=== PATIENT | male | born 1995 | race Caucasian/White ===

== ENCOUNTER 2017-03-10 21:47 | Observation (INO) | payer BC ==
[~2017-03-10] VITALS: Ht 177.8 cm; Wt 84.3 kg
[2017-03-10] MEDS ORDERED: ALBUT/IPRATROP 3MG/0.5MG NEB 3 ML VIAL INH STA (22:03)
[2017-03-10] MEDS ORDERED: ALBUT/IPRATROP 3MG/0.5MG NEB 3 ML VIAL ONE (22:03)
[2017-03-10] MEDS ORDERED: DEXAMETHASONE SOD INJ 10 MG/ML VIAL PO ONE (22:15)
[2017-03-10] MEDS ORDERED: ALBUT/IPRATROP 3MG/0.5MG NEB 3 ML VIAL INH ONE (22:15)
[2017-03-10 22:23] VITALS: PULSE 117; O2SAT 99
[2017-03-10] MEDS ORDERED: VNTHFA/IN INH (22:51)
[2017-03-10] MEDS ORDERED: CLR10 PO (22:51)
[2017-03-10] MEDS ORDERED: GUAI1TAB55 PO (22:52)
[2017-03-10] MEDS ORDERED: SODIUM CHLORIDE 0.9% 1000ML 1,000 ML IV STA ×2 (23:32)
[2017-03-10] MEDS ORDERED: MAGNESIUM SULFATE 1GM / D5W 1 GM BAG IV STA (23:32)
[2017-03-10 23:49] LABS: BASO % 0.3 %; BASO ABS # 0.06 K/uL (0-0.2); COMPLETE YES; EOS % 0.4 %; HEMATOCRIT 46.6 % (42-52); IG% 0.3 %; LYMPH % 6.5 %; LYMPH ABS # 1.43 K/uL (1.2-3.4); MEAN CELL VOLUME 88.1 fL (80-100); MEAN CORPUSCULAR HEMOGLOBIN 31.2 pg (25-34); MEAN CORPUSCULAR HGB CONC 35.4 g/dl (32-36); MEAN PLATELET VOLUME 10.1 fL (7.4-10.4); MONO % 7.4 %; NEUT % 85.1 %; PLATELET COUNT 335 K/uL (130-400); RED BLOOD COUNT 5.29 M/uL (4.7-6.1); WHITE BLOOD COUNT 22.01 K/uL (4.8-10.8)
[2017-03-10 23:53] LABS: VEN BLOOD GAS BASE EXCESS 1.7 mEq/L; VENOUS BLOOD GAS PCO2 47 mmHg (38.0-50.0); VENOUS BLOOD GAS PO2 22 mmHg
[2017-03-10 23:55] LABS: VEN BLD GAS O2 SATURATION < 60.0 %
[2017-03-11 00:07] LABS: BUN/CREATININE RATIO 7.3 (10-20); CALCIUM 9.5 mg/dl (8.5-10.1); CREATININE 1.1 mg/dl (0.60-1.40); POTASSIUM 3.4 mmol/L (3.5-5.1)
--- NOTE | 2017-03-11 01:42 | History and Physical ---
History & Physical Date & Time of Service: Mar 11, 2017 at 01:42 Chief Complaint: Trouble Breathing, Inhaler Wont Help Primary Care Physician: No Doctor, Assigned History of Present Illness Source: patient Rayo Allen is a 21 year old male who presented to the ER with shortness of breath, chest tightness/pain, nasal congestion, cough and wheezing for 2 days. He has known asthma but not on any maintenance inhaler. He takes albuterol approximately twice/week usually for relief of his symptoms. He gets his symptoms all year round. Recently a few of his work colleagues had a URI which he thinks he may now have. He is coughing up small amounts of yellow sputum. In the ER he was given steroids and duonebs which helped with his shortness of breath however he is still having chest tightness and is wheezing. Past Medical/Surgical History Asthma Family History Father and brother have asthma Social History Smoking Status: Never Smoker Smokeless Tobacco Use: No Alcohol Use: heavy (>10 drinks twice/week) Drug Use: marijuana Marital Status: single Occupational Status: [employer] student Immunizations History of Influenza Vaccine: Unknown History of Tetanus Vaccine?: Unknown History of Pneumococcal: No History of Hepatitis B Vaccine: Unknown Multi-Drug Resistant Organisms History of MDRO: No Allergies Coded Allergies: No Known Allergies (Unverified , 03/10/17) Home Medications Scheduled Guaifenesin Ext Rel (Mucinex Ext Rel), 600 MG PO Q12 Loratadine (Claritin), 10 MG PO DAILY Scheduled PRN Albuterol Hfa (Ventolin Hfa), 2 PUFFS INH Q4 PRN for SOB/Wheezing Review of Systems Constitutional: No fever, No chills ENT: + nasal symptoms (congestion), + sore throat, No unusual epistaxis Respiratory: + cough, + sputum, + shortness of breath, + dyspnea on exertion, + dyspnea at rest, No hemoptysis Cardiovascular: + chest pain (tightness, worse on lying down) Abdomen: No pain, No nausea, No vomiting, No diarrhea, No constipation, No GI bleeding Musculoskeletal: No joint pain, No muscle pain Genitourinary - Male: No hematuria, No dysuria, No urinary frequency Neurologic: + problem reported (hoarse voice since coming to the ER) Endocrine: No fatigue, No excessive thirst, No excessive urination Hematologic / Lymphatic: No abnormal bleeding/bruising Integumentary: No rash, No itch Physical Exam Vital Signs Date Time Temp Pulse Resp B/P (MAP) Pulse Ox O2 Delivery O2 Flow Rate FiO2 03/11/17 01:09 108 28 143/93 94 Room Air 03/11/17 01:08 92 Room Air 03/11/17 00:19 109 24 141/84 95 Room Air 03/10/17 23:25 132 24 110/77 92 Room Air 03/10/17 22:29 120 03/10/17 22:23 117 18 99 Room Air 03/10/17 22:15 100 03/10/17 21:55 37.0 126 18 153/88 90 Room Air 03/10/17 21:55 93 Room Air General Appearance: WD/WN, + mild distress (short of breath) Eyes: normal inspection, PERRL, EOMI Neck: supple, no adenopathy, no JVD, trachea midline Respiratory/Chest: + wheezing (throughout) Cardiovascular: regular rate, rhythm, no edema, no murmur, normal peripheral pulses, + friction rub Abdomen/GI: normal bowel sounds, non tender, soft Back: no CVA tenderness Extremities/Musculoskelatal: no calf tenderness, normal capillary refill, no pedal edema, non-tender 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, no motor/sensory deficits, alert, oriented x 3 Skin: normal color, warm/dry, no rash Diagnostics Laboratory Results Results Past 24 Hours Test 03/10/17 23:30 03/10/17 23:45 Range/Units White Blood Count 22.01 4.8-10.8 K/uL Red Blood Count 5.29 4.7-6.1 M/uL Hemoglobin 16.5 14.0-18.0 g/dL Hematocrit 46.6 42-52 % Mean Corpuscular Volume 88.1 80-100 fL Mean Corpuscular Hemoglobin 31.2 25-34 pg Mean Corpuscular Hemoglobin Concent 35.4 32-36 g/dl Platelet Count 335 130-400 K/uL Mean Platelet Volume 10.1 7.4-10.4 fL Neutrophils (%) (Auto) 85.1 % Lymphocytes (%) (Auto) 6.5 % Monocytes (%) (Auto) 7.4 % Eosinophils (%) (Auto) 0.4 % Basophils (%) (Auto) 0.3 % Neutrophils # (Auto) 18.73 1.4-6.5 K/uL Lymphocytes # (Auto) 1.43 1.2-3.4 K/uL Monocytes # (Auto) 1.63 0.11-0.59 K/uL Eosinophils # (Auto) 0.09 0-0.5 K/uL Basophils # (Auto) 0.06 0-0.2 K/uL RDW Standard Deviation 42.4 36.4-46.3 fL RDW Coefficient of Variation 13.2 11.5-14.5 % Immature Granulocyte % (Auto) 0.3 % Immature Granulocyte # (Auto) 0.07 0.00-0.02 K/uL Sodium Level 140 136-145 mmol/L Potassium Level 3.4 3.5-5.1 mmol/L Chloride Level 105 98-107 mmol/L Carbon Dioxide Level 25 21-32 mmol/L Anion Gap 10.0 3-11 mmol/L Blood Urea Nitrogen 8 7-18 mg/dl Creatinine 1.10 0.60-1.40 mg/dl Est Creatinine Clear Calc Drug Dose 108.8 ml/min Estimated GFR () 109.9 Estimated GFR (Non- 94.8 BUN/Creatinine Ratio 7.3 10-20 Random Glucose 138 70-99 mg/dl Calcium Level 9.5 8.5-10.1 mg/dl Magnesium Level 2.0 1.8-2.4 mg/dl Venous Blood pH 7.39 7.36-7.41 Venous Blood Partial Pressure CO2 47 38.0-50.0 mmHg Venous Blood Partial Pressure O2 22 mmHg Venous Blood HCO3 27 mmol/L Venous Blood Oxygen Saturation < 60.0 % Venous Blood Base Excess 1.7 mEq/L Diagnostic Radiology CXR - as interpreted by myself. No consolidation seen. Right sided subcutaneous emphysema. No pneumothorax. EKG pending Impression Assessment and Plan 21 year old with mild intermittent asthma treated with albuterol approximately twice/week. Acute exacerbation of asthma - Continue systemic steroids with prednisone 40mg PO daily - Duonebs QID + Q2H PRN - Start Symbicort 160/4.5 BID - will presume infective although no consolidation seen on CXR, will cover with levaquin. Chest pain - EKG ordered to assess for pericarditis Subcutaneous emphysema - Repeat CXR in 24 hours to assess for progression - likely to be self limiting secondary to asthma - Toradol for pain control VTE Prophylaxis - young age and mobile therefore hold off chemical prophylaxis - SCD + TEDs Code - Full Disposition - observation status given good oxygenation to med/surg Attending Addendum: I have physically seen and examined this patient, have supervised the medical residents activities, and agree with the H&P as noted above with the following exceptions as noted. The patient presents to the emergency department with nasal congestion, sore throat, cough, shortness of breath at rest and dyspnea on exertion. The patient denies chest pain, palpitations, lower extremity swelling, vision change, hearing change, fevers, chills, sweats, weight change, fatigue, nausea , vomiting, diarrhea or constipation, abdominal pain, pelvic pain, blood in urine or stool, dysuria, urinary frequency or urgency, lightheadedness, dizziness, headache, memory loss, rash, abnormal bruising or bleeding, imbalance , focal or generalized weakness, numbness or tingling in arms or legs, generalized arthralgias or myalgias, back or neck pain, night sweats. The review of systems is otherwise negative other than for that already noted above, and at least 10 systems have been reviewed. The patient is awake, well-developed and adequately nourished, alert and oriented 3, normocephalic and atraumatic, lying in bed and in no acute distress. HEENT--PERRL, EOMI, mucous membranes and oropharynx dry. Neck--supple, no JVD or bruits, thyroid normal, trachea midline, no adenopathy. Heart--normal S1 and S2, no extra beats, no murmurs, rubs or gallops. Lungs--wheezes bilaterally, no respiratory distress, no accessory muscle use. Abdomen--normal bowel sounds and soft, nontender and nondistended, no hernias or masses, no organomegaly. Extremities--no cyanosis, clubbing or edema. There are good distal pulses b/l. Dermatologic--normal skin turgor, normal color, warm and dry, no abnormal lymph nodes, no rash. Neurologic--cranial nerves II through XII grossly intact, motor and sensory examination normal. Rheumatologic--normal range of motion, nontender, muscles and joints. Psychiatric--normal affect. Assessment and Plan: 1. Asthma exacerbation--prednisone 40 mg by mouth daily with taper. Duonebs every 4 hours while awake and every 2 hours when necessary. Levaquin 500 mg by mouth daily. Symbicort 160/4.5, 2 puffs twice a day. He would likely do well with a home nebulizer unit to be prescribed this visit, so that he can use it for future exacerbations, and avoid hospitalizations. Level of Care Med/Surg Advanced Directives Existing Advance Directive: No Existing Living Will: No Existing Power of Certified Income Tax Preparer: No Resuscitation Status FULL RESUSCITATION VTE Prophylaxis VTE Risk Assessment Done? Y/N: Yes Risk Level: Very Low Given or contraindicated: Treatment not indicated Resident Tracking Resident Involvement: Resident Care Provided Care Provided: Adult Hospital Medicine
[2017-03-11] MEDS ORDERED: SODIUM CHLORIDE 0.9% 1000ML 1,000 ML IV STA (01:59)
[2017-03-11] MEDS ORDERED: BUDESONIDE/FORMOTEROL FUMARATE 160/4.5 60 PUFFS/INHALER INH ONE (02:09)
[2017-03-11] MEDS ORDERED: ALBUT/IPRATROP 3MG/0.5MG NEB 3 ML VIAL INH STA (02:10)
[2017-03-11] MEDS ORDERED: ACETAMINOPHEN 325 MG TAB PO PRN (02:15)
[2017-03-11] MEDS ORDERED: ONDANSETRON INJ 2 MG/ML 2 ML VIAL IV PRN (02:15)
[2017-03-11] MEDS ORDERED: POTASSIUM CHLORIDE 10 MEQ TABCR PO STA (02:17)
[2017-03-11 02:45] VITALS: BP 153/84; PULSE 78; TEMP 37; O2SAT 94; Ht 177.8 cm; Wt 84.3 kg
[2017-03-11] MEDS: LEVOFLOXACIN / D5W 750 MG in PREMIXED IN D5W 150 ML IV SCH (03:16)
[2017-03-11] MEDS ORDERED: IV FLUIDS COMPLETED PRN (04:15)
--- NOTE | 2017-03-11 05:19 | DIAGNOSTIC IMAGING REPORT ---
CHEST 2 VIEWS ROUTINE CLINICAL HISTORY: 21 years-old Male presenting with cough/wheeze. TECHNIQUE: PA and lateral views of the chest were obtained. COMPARISON: None. FINDINGS: Evidence of pneumomediastinum with extension into the subcutaneous tissues of the neck. Additional radiolucency along the inferior lateral right chest. Cardiomediastinal silhouette otherwise normal. Suggestion of mild bronchial wall thickening. Lungs and pleural spaces clear. Specifically, no pneumothorax is evident. Osseous structures normal. Upper abdomen normal. IMPRESSION: 1. Pneumomediastinum, which is likely a consequence of reported wheezing/elevated intrathoracic pressure. No pneumothorax is evident. No focal infiltrate. 2. Suggestion of mild bronchial wall thickening which raises concern for reactive airways disease or viral bronchiolitis. 3. Radiolucency along the inferior right lateral chest wall may represent soft tissue emphysema versus small lung herniation. The report will be called/faxed according to standard departmental protocol. Electronically signed by: Fuentes Denise M.D. 03/11/2017 5:18 AM Dictated Date/Time: 03/11/2017 5:15 AM
--- NOTE | 2017-03-11 05:47 | EMERGENCY ROOM VISIT NOTE ---
History First contact with patient: 21:58 Chief Complaint: RESPIRATORY PROBLEMS Stated Complaint: ACUTE ASTHMA EXACERBATION Nursing Triage Summary: Hx of asthma. Difficulty breathing since yesterday. No relieve from rescue inhaler. History of Present Illness The patient is a 21 year old male who presents to the Emergency Room with complaints of cough, wheezing and short of breath for the past few days that is steadily getting worse. Patient tried his inhaler with no relief of symptoms. No recent exacerbations. Patient does have seasonal allergies which seemed to trigger his asthma. Patient denies chest pain, productive cough, fever, chills , back pain, leg pain or swelling, abdominal pain. He is tolerated by mouth fluids and food. Review of Systems See HPI for pertinent positives & negatives. A total of 10 systems reviewed and were otherwise negative. Past Medical/Surgical History Medical Problems: (1) Acute asthma exacerbation Social History Smoking Status: Never Smoker Smokeless Tobacco Use: No Drug Use: marijuana Occupation Status: [employer] student Current/Historical Medications Scheduled Guaifenesin Ext Rel (Mucinex Ext Rel), 600 MG PO Q12 Loratadine (Claritin), 10 MG PO DAILY Scheduled PRN Albuterol Hfa (Ventolin Hfa), 2 PUFFS INH Q4 PRN for SOB/Wheezing Physical Exam Vital Signs Date Time Temp Pulse Resp B/P (MAP) Pulse Ox O2 Delivery O2 Flow Rate FiO2 03/11/17 01:09 108 28 143/93 94 Room Air 03/11/17 01:08 92 Room Air 03/11/17 00:19 109 24 141/84 95 Room Air 03/10/17 23:25 132 24 110/77 92 Room Air 03/10/17 22:29 120 03/10/17 22:23 117 18 99 Room Air 03/10/17 22:15 100 03/10/17 21:55 37.0 126 18 153/88 90 Room Air 03/10/17 21:55 93 Room Air Pain Rating (0-10): 4.0 Physical Exam PHYSICAL EXAM: Vital Signs: Reviewed Nurse's notes. Oxygen saturation was 90% on room air. GENERAL: Pleasant male unable to speak in full sentences, Alert, oriented and coherent. The patient is not able to speak in complete sentences. NECK: Supple, non-tender. CHEST: Symmetrical expansion. + retractions + accessory muscle use. HEART: Regular rate and normal heart sounds, no murmur, gallop or rub. LUNGS: Breath sounds equal but significantly diminished in intensity on both sides. Bilateral wheezes heard but no rales or pleuritic rub. SKIN: The skin was without rashes, erythema, edema, or bruising. There is no tenting of the skin. Capillary reflex less than 2 seconds. HEAD: Normocephalic atraumatic. EARS: External auditory canals clear, tympanic membranes pearly kaur without erythema or effusion bilaterally. EYES: Pupils equal round and reactive to light and accommodation. Conjunctivae without injection, sclerae without icterus. Extraocular movements intact. NOSE: Patent, turbinates without inflammation or discharge. No sinus tenderness. MOUTH: Mucous membranes moist. Pharynx without erythema or exudate. Uvula midline. Airway patent. Tongue does not deviate. ABDOMEN: Positive bowel sounds x 4. Normal tympanic percussion. Soft, nontender, without masses or organomegaly. Galindo sign negative. No guarding or rebound tenderness. MUSCULOSKELETAL: No muscle atrophy, erythema, or edema noted. Normal gait. Strength 5/5 throughout. NEURO: Patient was alert and oriented to person place and time. Normal sensation to light and sharp touch. No focal neurological deficits. Medical Decision & Procedures Laboratory Results 03/10/17 23:30 Red Blood Count 5.29, Mean Corpuscular Volume 88.1, Mean Corpuscular Hemoglobin 31.2, Mean Corpuscular Hemoglobin Concent 35.4, Mean Platelet Volume 10.1, Neutrophils (%) (Auto) 85.1, Lymphocytes (%) (Auto) 6.5, Monocytes (%) (Auto) 7.4, Eosinophils (%) (Auto) 0.4, Basophils (%) (Auto) 0.3, Neutrophils # (Auto) 18.73, Lymphocytes # (Auto) 1.43, Monocytes # (Auto) 1.63, Eosinophils # (Auto) 0.09, Basophils # (Auto) 0.06 03/10/17 23:30 Test 03/10/17 23:30 03/10/17 23:45 White Blood Count 22.01 K/uL (4.8-10.8) Red Blood Count 5.29 M/uL (4.7-6.1) Hemoglobin 16.5 g/dL (14.0-18.0) Hematocrit 46.6 % (42-52) Mean Corpuscular Volume 88.1 fL (80-100) Mean Corpuscular Hemoglobin 31.2 pg (25-34) Mean Corpuscular Hemoglobin Concent 35.4 g/dl (32-36) Platelet Count 335 K/uL (130-400) Mean Platelet Volume 10.1 fL (7.4-10.4) Neutrophils (%) (Auto) 85.1 % Lymphocytes (%) (Auto) 6.5 % Monocytes (%) (Auto) 7.4 % Eosinophils (%) (Auto) 0.4 % Basophils (%) (Auto) 0.3 % Neutrophils # (Auto) 18.73 K/uL (1.4-6.5) Lymphocytes # (Auto) 1.43 K/uL (1.2-3.4) Monocytes # (Auto) 1.63 K/uL (0.11-0.59) Eosinophils # (Auto) 0.09 K/uL (0-0.5) Basophils # (Auto) 0.06 K/uL (0-0.2) RDW Standard Deviation 42.4 fL (36.4-46.3) RDW Coefficient of Variation 13.2 % (11.5-14.5) Immature Granulocyte % (Auto) 0.3 % Immature Granulocyte # (Auto) 0.07 K/uL (0.00-0.02) Anion Gap 10.0 mmol/L (3-11) Est Creatinine Clear Calc Drug Dose 108.8 ml/min Estimated GFR () 109.9 Estimated GFR (Non- 94.8 BUN/Creatinine Ratio 7.3 (10-20) Calcium Level 9.5 mg/dl (8.5-10.1) Magnesium Level 2.0 mg/dl (1.8-2.4) Venous Blood pH 7.39 (7.36-7.41) Venous Blood Partial Pressure CO2 47 mmHg (38.0-50.0) Venous Blood Partial Pressure O2 22 mmHg Venous Blood HCO3 27 mmol/L Venous Blood Oxygen Saturation < 60.0 % Venous Blood Base Excess 1.7 mEq/L Medications Administered Medications (Trade) Dose Ordered Sig/Jose Antonio Route Start Time Stop Time Status Last Admin Dose Admin Albuterol/ Ipratropium (Duoneb) 12 ml ONE ONCE INH 03/10/17 22:15 03/10/17 22:16 DC 03/10/17 22:11 12 ML Dexamethasone Sodium Phosphate (Decadron Inj) 10 mg NOW ONCE PO 03/10/17 22:15 03/10/17 22:16 DC 03/10/17 22:17 10 MG Albuterol/ Ipratropium (Duoneb) 3 ml STK-MED ONCE .ROUTE 03/10/17 22:03 03/10/17 22:04 DC 03/10/17 22:03 3 ML Magnesium Sulfate (Magnesium Sulfate) 1 gm NOW STAT IV 03/10/17 23:32 03/10/17 23:34 DC 03/10/17 23:41 1 GM Sodium Chloride 1,000 ml @ 999 mls/hr Q1H1M STAT IV 03/10/17 23:32 03/11/17 00:32 DC 03/10/17 23:40 999 MLS/HR Sodium Chloride 1,000 ml @ 125 mls/hr Q8H STAT IV 03/10/17 23:32 03/11/17 03:01 DC 03/11/17 00:40 125 MLS/HR ED Course Prior records/ancillary studies reviewed. Triage Nursing notes reviewed. Additional history obtained from the family. The patient's history was concerning for respiratory difficulties. Differential diagnosis: Etiologies such as infections, reactive airway disease, pneumonia, pneumothorax , COPD, CHF, cardiac ischemia, pulmonary embolism, musculoskeletal, gastrointestinal, as well as others were entertained. Physical examination: As above. ER treatment provided: Decadron, nebulizer On reassessment the patient felt better. Diagnostic interpretation by me: The labs revealed leukocytosis, stable H&H Imaging studies: Chest x-ray as above. CHEST 2 VIEWS ROUTINE CLINICAL HISTORY: 21 years-old Male presenting with cough/wheeze. TECHNIQUE: PA and lateral views of the chest were obtained. COMPARISON: None. FINDINGS: Evidence of pneumomediastinum with extension into the subcutaneous tissues of the neck. Additional radiolucency along the inferior lateral right chest. Cardiomediastinal silhouette otherwise normal. Suggestion of mild bronchial wall thickening. Lungs and pleural spaces clear. Specifically, no pneumothorax is evident. Osseous structures normal. Upper abdomen normal. IMPRESSION: 1. Pneumomediastinum, which is likely a consequence of reported wheezing/elevated intrathoracic pressure. No pneumothorax is evident. No focal infiltrate. 2. Suggestion of mild bronchial wall thickening which raises concern for reactive airways disease or viral bronchiolitis. 3. Radiolucency along the inferior right lateral chest wall may represent soft tissue emphysema versus small lung herniation. The report will be called/faxed according to standard departmental protocol. Electronically signed by: Fuentes Denise M.D. 03/11/2017 5:18 AM Consultation: A consultation was placed with the Dr. Yo hospitalist. The case was discussed and diagnostics were reviewed. The patient was evaluated in the ER for further treatment. This appears to be consistent with asthma exacerbation he was still quite wheezy and unable to ambulate secondary to the asthma exacerbation. Patient will be evaluated by medicine for possible admission. By the evaluation outlined above emergent etiologies such as CHF, cardiac ischemia, pulmonary embolism, pneumonia, pneumothorax, musculoskeletal, serious bacterial infections, as well as others were deemed relatively unlikely. The pt informed about the findings as listed above. All questions were answered and pleased with the treatment. Case reviewed with my attending Medical Decision as above Medication Reconcilliation Current Medication List: was personally reviewed by me Impression Primary Impression: Acute asthma exacerbation Additional Impression: Hypokalemia Departure Information Dispostion Still a Patient Condition FAIR Referrals No Doctor, Assigned (PCP) Forms WORK / SCHOOL INSTRUCTIONS, HOME CARE DOCUMENTATION FORM, IMPORTANT VISIT INFORMATION Patient Instructions [facility] Problem Qualifiers Primary Impression: Acute asthma exacerbation Asthma severity: severe persistent Qualified Codes: J45.51 - Severe persistent asthma with (acute) exacerbation
[2017-03-11 07:31] VITALS: PULSE 101; O2SAT 94
[2017-03-11] MEDS: ALBUT/IPRATROP 3MG/0.5MG NEB 3 ML VIAL INH SCH ×3 (07:31→19:11)
[2017-03-11] MEDS ORDERED: PNEUMOCOCCAL ADMINISTRATION CHARGE ONE (08:00)
[2017-03-11] MEDS ORDERED: PNEUMOCOCCAL POLYSACCHARIDES 25 MCG/0.5 ML VIAL/SYR IM. ONE (08:00)
[2017-03-11 08:11] VITALS: BP 141/79; PULSE 90; TEMP 36.5; O2SAT 95
[2017-03-11] MEDS: LORATADINE 10 MG TAB PO SCH (08:23)
[2017-03-11] MEDS: BUDESONIDE/FORMOTEROL FUMARATE 160/4.5 60 PUFFS/INHALER INH SCH ×2 (08:24→19:54)
[2017-03-11] MEDS: GUAIFENESIN 600 MG TABCR PO SCH ×2 (08:24→21:07)
[2017-03-11] MEDS ORDERED: KETOROLAC TROMETHAMINE 30 MG/ML VIAL IV PRN (09:00)
[2017-03-11] MEDS ORDERED: COUGH DROP (SUGAR FREE) LOZ 24 LOZ/1 BOX PO PRN (09:00)
[2017-03-11] MEDS ORDERED: DEXTROMETHORPHAN POLYMR COMPLX 30 MG/5 ML UDP PO PRN (09:00)
--- NOTE | 2017-03-11 09:19 | DIAGNOSTIC IMAGING REPORT ---
CHEST 2 VIEWS ROUTINE CLINICAL HISTORY: 21 years-old Male presenting with ?progression of pneumomediastinum. TECHNIQUE: PA and lateral views of the chest were obtained. COMPARISON: 03/11/2017 at 12:00 AM. FINDINGS: Redemonstration of pneumomediastinum with extensive subcutaneous emphysema in the base of the neck. This is not significantly changed in extent from prior Radiolucency along the inferior right lateral chest wall again demonstrated, most characteristic of subcutaneous emphysema. Cardiac mediastinal silhouette otherwise normal. Lungs and pleural spaces clear. Specifically, no pneumothorax. Osseous structures normal. Upper abdomen normal. IMPRESSION: 1. Pneumomediastinum unchanged in severity. No pneumothorax. 2. Radiolucency over the inferior right lateral chest wall most characteristic of subcutaneous emphysema. Electronically signed by: Fuentes Denise M.D. 03/11/2017 9:18 AM Dictated Date/Time: 03/11/2017 9:17 AM
[2017-03-11] MEDS: DEXTROMETHORPHAN POLYMR COMPLX 30 MG/5 ML UDP PO SCH ×3 (10:08→21:47)
[2017-03-11] MEDS ORDERED: NURSING VERBAL MED ORDER ONE (12:15)
--- NOTE | 2017-03-11 13:27 | Progress Note ---
Progress Note Date of Service Mar 11, 2017. Progress Note Seen this am breathing better. On questioning - does smokes marijuana about twice a week. Discussed quitting. Vitals stable, Resp exam - No respiratory distress. Lungs with bilateral expiratory wheeze Continue current treatment CXR from last night with pneumomediastinum and subcutaneous emphysema/small lung herniation. Repeat this morning with no change. Spoke to pulmonology - Dr Acosta will evaluate the films and get back
[2017-03-11 15:30] VITALS: PULSE 91; O2SAT 94
[2017-03-11 15:56] VITALS: BP 137/72; PULSE 84; TEMP 36.6; O2SAT 94
[2017-03-11 19:11] VITALS: PULSE 110; O2SAT 94
--- NOTE | 2017-03-11 19:50 | DIAGNOSTIC IMAGING REPORT ---
(CHEST) THORAX WITHOUT CLINICAL HISTORY: 21 years-old Male presenting with pneumomediastinum. TECHNIQUE: Multidetector CT imaging of the chest was performed without the use of intravenous contrast. IV contrast: None. A dose lowering technique was used consistent with the principles of ALARA (as low as reasonably achievable). COMPARISON: Chest x-ray performed earlier the same day. CT DOSE (mGy.cm): The estimated cumulative dose is 416.12 mGy.cm. FINDINGS: Medical Lead topogram: Unremarkable. On soft tissue windows, extensive cutaneous emphysema along the base of the neck tracking along the anterior chest wall as superior extension of pneumomediastinum. Pneumomediastinum also dissects inferiorly into the superior portion of the retroperitoneum. Normal thyroid. No axillary, supraclavicular, hilar, or mediastinal lymphadenopathy. Normal aorta. Normal heart size. No pericardial or pleural effusion. Upper abdomen normal. On lung windows, no focal infiltrate or nodule. Mild bronchial wall thickening. On bone windows, normal osseous structures. IMPRESSION: 1. Extensive pneumomediastinum with soft tissue emphysema along the base of the neck and chest wall as well as minimally extending into the retroperitoneum. 2. No focal lung opacity. Mild bronchial wall thickening could suggest reactive airways disease or viral bronchiolitis. Electronically signed by: Fuentes Denise M.D. 03/11/2017 7:49 PM Dictated Date/Time: 03/11/2017 7:44 PM
[2017-03-12] MEDS: LEVOFLOXACIN / D5W 750 MG in PREMIXED IN D5W 150 ML IV SCH (02:51)
[2017-03-12] MEDS: DEXTROMETHORPHAN POLYMR COMPLX 30 MG/5 ML UDP PO SCH ×2 (04:13→10:22)
[2017-03-12 07:00] VITALS: BP 117/66; PULSE 100; TEMP 36.5; O2SAT 96
[2017-03-12] MEDS: ALBUT/IPRATROP 3MG/0.5MG NEB 3 ML VIAL INH SCH (07:02)
[2017-03-12 07:05] VITALS: PULSE 107; O2SAT 93
--- NOTE | 2017-03-12 07:47 | Pulmonary Consultation ---
History General Date of Service: Mar 12, 2017. Stated Complaint: Acute Asthma Exacerbation, pneumomediastinum HPI The patient is a 21 year old male who presents to [facility] with complaints of Acute Asthma Exacerbation. The patient's primary care provider is No Doctor, Assigned. HPI: 21 y/o male admitted to [facility] for asthma exacerbation with associated PTX: He presented to the ED with symptoms of shortness of breath, chest tightness, chest pain, nasal congestion, cough and wheezing for 2 days. He has a PmHx significant for asthma but wasnt on any daily maintenance inhalers. He does have a rescue inhaler (albuterol) and uses it 1-2 times per week for relief of SOB. He has notable sick contacts from his work and noted no relief from his SOB with use of his rescue inhaler. In the ED he had a RR of 18-28, SaO2 of 90- 100 on room air and was hemodynamically stable. He was treated with steroids and Duo-Nebs and admitted for continued SOB and associated PTX. During our interview the today the patient notes she has had dramatic improvement in his chest discomfort/pain as well as his dysphagia. He also notes he is respiratory status has greatly improved continues approximately 20% from his baseline. He currently denies: Fever, chills, productive cough, classic cardiac chest pain or active pleurisy. Work-UP WBC: 22K (EOS: 0.4%) VB.39/47//27 corrected to 7.43/57 K+: 3.4 CXR (03/10/17) sub-q air with associated moc line, sherrill-bronchial cuffing CXR (03/11/17) sub-q air with associated moc line, sherrill-bronchial cuffing CT Thorax (03/11/17) sub-q air, pneumomediastinum Medications: 1) Dextromethorphan 2) Guifenesin 3) Prednisone 4) Toradol 5) Claritin 6) Symbicort 16/4.5 2 puffs BID 7) DuoNeb 8) Levofloxacin 750mg Historian: patient, EMS Review of Systems Constitutional: reports: no symptoms Eyes: reports: no symptoms ENT: reports: no symptoms Cardiovascular: reports: as stated in HPI Respiratory: reports: as stated in HPI Gastrointestinal: reports: no symptoms Genitourinary - Male: reports: no symptoms Musculoskeletal: reports: as stated in HPI Integumentary: reports: no symptoms Neurologic: reports: no symptoms Psychiatric: reports: no symptoms Endocrine: no symptoms Hematologic / Lymphatic: no symptoms Allergic / Immunologic: no symptoms Past Medical History Past Medical History: Childhood onset asthma Past Surgical History: no surgical history Family History Asthma Social History Tobacco: Never Smoker Smokeless Tobacco Use: No Alcohol Use: heavy (>10 drinks twice/week) Drug Use: marijuana Marital Status: single Occupational Status: [employer] Hx Tobacco Use In Past Year?: No Smoking Status: Never Smoker Marital status: single Occupational Status: [employer] Immunizations History of Influenza Vaccine: Unknown History of Tetanus Vaccine?: Unknown History of Pneumococcal: No History of Hepatitis B Vaccine: Unknown History of MDRO History of MDRO: No Allergies Coded Allergies: No Known Allergies (Unverified , 03/10/17) Current Medications Reported Home Medications Medications Dose Route/Sig Max Daily Dose Days Date Category Mucinex Ext Rel (Guaifenesin) 600 Mg Tab 600 Mg PO Q12 03/10/17 Reported Claritin (Loratadine) 10 Mg Tab 10 Mg PO DAILY 03/10/17 Reported Ventolin Hfa (Albuterol) 200 Puffs/86475 Mcg Aers 2 Puffs INH Q4 PRN 03/10/17 Reported Physical Physical Exam Vital Signs: Date Time Temp Pulse Resp B/P (MAP) Pulse Ox O2 Delivery O2 Flow Rate FiO2 03/12/17 07:05 107 20 93 Room Air 03/11/17 23:59 Room Air 03/11/17 20:00 Room Air 03/11/17 19:11 110 20 94 Room Air 03/11/17 16:18 Room Air 03/11/17 15:56 36.6 84 20 137/72 (93) 94 03/11/17 15:30 91 18 94 Room Air 03/11/17 10:45 Room Air 03/11/17 08:11 36.5 90 16 141/79 (99) 95 Room Air General Appearance: WELL-APPEARING, NO APPARENT DISTRESS Head: NORMOCEPHALIC, ATRAUMATIC Eyes: PERRLA, NO DISCHARGE, EOMI, SCLERAE NORMAL ENT: NORMAL EAR EXAM, NORMAL NASAL EXAM, NORMAL MOUTH EXAM, NORMAL SINUS EXAM Neck: NORMAL RANGE OF MOTION, NO TENDERNESS, TRACHEA MIDLINE, NO STRIDOR Respiratory: other (expiratory wheezings globally, minimal subcutaneous fremitus, peak flow 480) Cardiovasular: REGULAR RATE/RHYTHM, NORMAL S1S2, NO M/G/R, NO MURMUR, NO GALLOP Abdomen: NON TENDER, NORMAL BOWEL SOUNDS, NO REBOUND, NO MASSES, NO GUARDING, NO ORGANOMEGALY, NORMAL RECTAL EXAM Genitourinary - Male: EXTERNAL GENITALIA NORMAL Back: NORMAL INSPECTION, NO MIDLINE TENDERNESS, NO CVA TENDERNESS, NO PARAVERTEBRAL TTP Upper Extremities: NO EDEMA, NO DEFORMITY, NORMAL ROM Lower Extremities: NO EDEMA, NO DEFORMITY, NORMAL ROM Pulses: carotid (R) (2+), carotid (L) (2+), posterior tibial (R), posterior tibial (L) (2+) Neuro: ALERT, ORIENTED x 3, NORMAL MOTOR EXAM, NORMAL SENSATION, NORMAL CEREBELLAR EXAM Reflexes: biceps (R) (2+), bicpes (L) (2+), achilles (R) (2+), achilles (L) (2+ ) Babinski Testing: right (downgoing), left (downgoing) Psychiatric: NORMAL AFFECT, NO SUICIDAL IDEATION Diagnostics Labs Results Past 24 Hours Test 03/12/17 04:44 Range/Units Diagnostic Radiology CXR (03/10/17) sub-q air with associated moc line, sherrill-bronchial cuffing CXR (03/11/17) sub-q air with associated moc line, sherrill-bronchial cuffing CT Thorax (03/11/17) sub-q air, pneumomediastinum EKG Interpretation: NORMAL EKG Impression Assessment and Plan 21-year-old male admitted with asthma exacerbation, leukocytosis and pneumomediastinum: #1 Asthma: Patient has had a long history of childhood onset intermittent asthma that has been mostly controlled with rescue inhaler albuterol. This had more difficulty controlling her asthma over the last few years which is most likely associated with his increased marijuana use. We have talked about trying to discontinue his marijuana use but this time the patient is not ready. I do agree with the patient's current medication and would slowly taper his prednisone over the next 10 days. Also agree with initiating Symbicort 160/4.5 puffs twice a day as he should be on a controller medication until his current issues are resolved. His peak flow meter was 480 today which is approximately 75 % predicted from his age and height. As this is an a.m. peak flow in the patient is showing minimal signs of this time is ready to be discharged. #2 Pneumomediastinum: Patient had pneumomediastinum most likely combination of inhalation technique from his marijuana use and asthma exacerbation. We've discussed the increased risk of repeat pneumomediastinum versus pneumothorax secondary to the weakness in his lungs. I have warned him against repeated use of marijuana with some inspiratory inhalation and hold techniques as well as possible diving in the future. As the patient's CAT scan showed no signs of blebs or weakness repeat CT at this time is not warranted but follow-up is necessary. #3 Leukocytosis: The patient's leukocytosis is most likely a reaction due to his asthma attack and pneumomediastinum. Disease had URI type symptoms I would suggest we obtain a influenza nasal swab, I will order at this time prior to discharge. Also I do agree with Levaquin for a total of 5 days at this time. #4 Management: I spoke to the patient at length about initiating his Symbicort and continuing his albuterol as a rescue inhaler. We'll also discussed the increased risk of exacerbations with marijuana. Also asked him to perform a peak flow trial he is back to his baseline in the morning and afternoon and evening and then monitor himself for falls of less than or greater than 20%. Follow-up: Patient should be followed up in the [facility] pulmonary clinic in one to 2 weeks after his discharge.
[2017-03-12 08:18] LABS: BASO % 0.2 %; BASO ABS # 0.03 K/uL (0-0.2); COMPLETE YES; EOS % 2.7 %; HEMATOCRIT 43.9 % (42-52); IG% 0.4 %; LYMPH % 20.2 %; LYMPH ABS # 2.61 K/uL (1.2-3.4); MEAN CORPUSCULAR HEMOGLOBIN 31.8 pg (25-34); MEAN CORPUSCULAR HGB CONC 35.3 g/dl (32-36); MEAN PLATELET VOLUME 9.7 fL (7.4-10.4); MONO % 10.4 %; NEUT % 66.1 %; PLATELET COUNT 303 K/uL (130-400); RED BLOOD COUNT 4.88 M/uL (4.7-6.1); WHITE BLOOD COUNT 12.95 K/uL (4.8-10.8)
[2017-03-12] MEDS: LORATADINE 10 MG TAB PO SCH (08:28)
[2017-03-12] MEDS: GUAIFENESIN 600 MG TABCR PO SCH (08:28)
[2017-03-12] MEDS: BUDESONIDE/FORMOTEROL FUMARATE 160/4.5 60 PUFFS/INHALER INH SCH (08:29)
[2017-03-12 08:43] LABS: BUN/CREATININE RATIO 13.1 (10-20); CALCIUM 9.5 mg/dl (8.5-10.1); CREATININE 1.1 mg/dl (0.60-1.40); POTASSIUM 3.6 mmol/L (3.5-5.1)
[2017-03-12] MEDS ORDERED: PRD10 PO (09:31)
--- NOTE | 2017-03-12 09:33 | Discharge Instructions ---
Discharge Instructions Date of Service Mar 12, 2017. Admission Reason for Admission: Acute Asthma Exacerbation Discharge Discharge Diagnosis / Problem: Acute asthma exacerbation Discharge Goals Goal(s): Improve disease control Activity Recommendations Activity Limitations: resume your previous activity . Instructions / Follow-Up Instructions / Follow-Up Follow up with family physician within one week Current Hospital Diet Patient's current hospital diet: Regular Diet Discharge Diet Recommended Diet: Regular Diet Pending Studies Studies pending at discharge: no Medical Emergencies . Who to Call and When: Medical Emergencies: If at any time you feel your situation is an emergency, please call 911 immediately. . Non-Emergent Contact Non-Emergency issues call your: Primary Care Provider . . "Provider Documentation" section prepared by Sophia Barnes. . VTE Core Measure Inpt VTE Proph given/why not?: Treatment not indicated
[2017-03-12 10:09] VITALS: BP 117/66; PULSE 107; TEMP 36.5; O2SAT 93
--- NOTE | 2017-03-12 11:31 | Discharge Summary ---
Discharge Summary Date of Service Mar 12, 2017. (Robert Sheppard M.D.) Discharge Summary Admission Date: Mar 11, 2017 at 02:02 Discharge Date: Mar 12, 2017 Discharge Disposition: Home Principal Diagnosis: Acute Asthma Exacerbation Immunizations: Have You Had Influenza Vaccine: Unknown History of Tetanus Vaccine?: Unknown History of Pneumococcal: No History of Hepatitis B Vaccine: Unknown (Robert Sheppard M.D.) Medication Reconciliation New Medications: Budesonide/Formoterol Fumarate (Symbicort 160/4.5 Inhaler) 120 Puffs/ Aero 2 PUFFS INH BID for 30 Days, #1 INHALER 3 Refills Prednisone (Prednisone) 10 Mg Tab 10 MG PO DAILY, #30 TAB 40mgs daily for 3 days, 30mgs daily for 3 days, 20mgs daily for 3 days, 10mgs daily for 3 days then stop Continued Medications: Albuterol Hfa (Ventolin Hfa) 200 Puffs/75410 Mcg Aers 2 PUFFS INH Q4 PRN for SOB/Wheezing, #1 INHALER Guaifenesin Ext Rel (Mucinex Ext Rel) 600 Mg Tab 600 MG PO Q12, TAB Loratadine (Claritin) 10 Mg Tab 10 MG PO DAILY, TAB Referrals At Discharge Follow up Referrals: [facility] Referral - Within 1-2 Weeks @ [facility] Provider Group with Jaleel Acosta MD Discharge Exam Review of Systems: Constitutional: No fever, No chills, No sweats Respiratory: + wheezing, No cough, No sputum, No shortness of breath, No dyspnea on exertion, No dyspnea at rest Cardiovascular: No chest pain, No orthopnea, No edema Abdomen: No pain, No nausea, No vomiting, No diarrhea Genitourinary - Male: No hematuria, No dysuria Physical Exam: General Appearance: WD/WN, no apparent distress Neck: supple, no adenopathy Respiratory/Chest: chest non-tender, no respiratory distress, no accessory muscle use, + wheezing Cardiovascular: regular rate, rhythm, no edema, no gallop, no JVD, no murmur , normal peripheral pulses Neurologic/Psychiatric: alert, normal mood/affect, oriented x 3 Skin: normal color, warm/dry, no rash (Robert Sheppard M.D.) breathing much better Review of Systems: Constitutional: No fever Respiratory: No shortness of breath Cardiovascular: No chest pain Physical Exam: General Appearance: no apparent distress Respiratory/Chest: no respiratory distress, + wheezing (occasional) Cardiovascular: regular rate, rhythm Neurologic/Psychiatric: alert, oriented x 3 Skin: warm/dry (Sophia Barnes M.D.) Hospital Course Mr. Allen is 21 year old male that presented to [facility] on 25Aug with an acute exacerbation of asthma. In the ED he was short of breath and complained of chest tightness. Pt also expressed some cold symptoms and reported that he had had some sick contacts recently. On exam, the patient had bilateral wheezes.Chest Xray demonstrated pneumomediastinum and subcutaneous emphysema, but no evidence of pneumothorax or infiltrate. Medical therapy was initiated: steroids, duonebs and Levaquin. [facility]. Next morning on rounds, the patient was recovering well, continued on breathing treatments, steroids and antibiotics. Pt was scheduled in the evening to have a CT to monitor CXR findings. On CT, pneumomediastinum and bronchial wall consistent with reactive disease was seem. The patient was found to be negative for influenza A and B. Pt condition at this point was improved and supportive treatments for lung findings were instructed on discharge: no heavy lifting, no smoking marijuana (pt smokes marijuana a couple times per week). Decision was made to discharge the patient with close follow. Pt was sent home with a steroid taper and instructions to follow-up with pulmonology and his primary care doctor. During his hospitalization the patient remarks that he is only using H1 blockers and albuterol inhalers to manage his asthma. Pt says that he has been hospitalized when he was 13 for one other asthma attack. At this time his is not on a maintenance inhaler, although he is a good candidate. Pulmonology recommends Symbicort 160/4.5 puffs twice a day. Total Time Spent: Less than 30 minutes This includes examination of the patient, discharge planning, medication reconciliation, and communication with other providers. (Robert Sheppard M.D.) Resident Physician Supervision Note: I was present with Dr. Sheppard in bedside. I verified the rosas history and physical, reviewed labs and image studies, discussed the case with the resident and agree with the findings and care plan. Total Time Spent: Greater than 30 minutes (35) (Sophia Barnes M.D.) Discharge Instructions Please refer to the electronic Patient Visit Report (Discharge Instructions) for additional information. (Robert Sheppard M.D.) Additional Copies To [facility]; Jaleel Acosta MD
[2017-03-12] MEDS ORDERED: SYMIN160 INH (13:47)
== END 2017-03-12 10:59 | disposition home or self-care (01) ==
LOC: C.EDB 21:49 → C.4E 03-11 02:02 → ENRESERV 03-11 02:18 → C.MS2W 03-11 22:50
PROVIDERS: ADMIT Hospitalist; ATTEND Family Medicine
DX: J45.901 Unspecified asthma with (acute) exacerbation (principal); E87.6 Hypokalemia; R07.9 Chest pain, unspecified; J98.2 Interstitial emphysema; F12.90 Cannabis use, unspecified, uncomplicated; D72.829 Elevated white blood cell count, unspecified